=== PATIENT | male | born 1980 | race Caucasian/White ===

== ENCOUNTER 2018-10-18 13:26 | Emergency (ER) | payer OTHER ==
[~2018-10-18] VITALS: Ht 175.3 cm; Wt 80.2 kg
[2018-10-18 13:59] VITALS: Ht 175.3 cm; Wt 80.2 kg
--- NOTE | 2018-10-18 16:34 | ERD ---
ER Documentation Chief Complaint Chief Complaint Complains of elevated BP Hx of HTN HPI Patient is a 38-year-old male with a history of hypertension presents the ER for concerns of elevated BP. Patient states for the last week his blood pressure has been in the 160s over 100s. Patient states he stopped taking his blood pressure medication 2-3 months ago after he lost 20-30 pounds. Patient states initially his blood pressure was within normal limits however over the last week it has become elevated. Patient states last week he was having some left-sided chest pain which has now completely resolved.. Patient denies any shortness of breath. Patient states he did have some left-sided arm pain however he is not sure if it is related to his chronic wrist dislocation. Patient denies any nausea, vomiting, diaphoresis or LOC. Patient denies any headaches, visual changes, abdominal pain, unilateral weakness, slurred speech or difficulty ambulating. Patient states he has started taking his amlodipine 10 mg again yesterday. Patient has not been able to follow-up with a primary care physician as he recently changed insurances. Patient denies any unilateral leg swelling, recent travel, recent surgeries or history of DVT/PE. ROS All systems reviewed and are negative except as per history of present illness. Allergies Allergies: Coded Allergies: No Known Allergy (Unverified , 10/18/18) PMhx/Soc History of Surgery: Yes (removal of gynecomastia) Anesthesia Reaction: No Hx Cardiac Disorders: Yes (HTN) Hx Alcohol Use: Yes (social) Hx Substance Use: No Hx Tobacco Use: No Smoking Status: Never smoker FmHx Family History: No diabetes Physical Exam Vitals Vital Signs Date Temp Pulse Resp B/P (MAP) Pulse Ox O2 O2 Flow FiO2 Time Delivery Rate 10/18/18 81 20 160/106 96 Room Air 16:12 (124) 10/18/18 98.4 100 20 181/106 99 13:59 (131) Physical Exam GENERAL: Well-developed, well-nourished male. Appears in no acute distress. Speaking in full sentences HEAD: Normocephalic, atraumatic. EYES: Pupils are equally reactive bilaterally. EOMs grossly intact. No conjunctival erythema. ENT: Moist mucous membranes. No uvula deviation. No kissing tonsils. NECK: Supple. No meningismus. Normal range of motion of the neck. LUNG: Clear to auscultation bilaterally. No rhonchi, wheezing, rales or coarse breath sounds. HEART: Regular rate and rhythm. No murmurs, rubs or gallops. Equal pulses in bilateral upper extremities. EXTREMITIES: Equal pulses bilaterally. No peripheral clubbing, cyanosis or edema. No unilateral leg swelling. NEUROLOGIC: Alert and oriented x3, cooperative. Mood and affect appropriate to situation. Cranial nerves II through XII are grossly intact. Normal speech. Mo tor exam: 5/5 strength in upper and lower extremities. Sensory exam: Sensation intact to light touch on all four extremities. Cerebellar function exam: No dysmetria on yhdrnw-[id number]-sout and ucen-ba-uvaj test. Steady gait. No pronator drift. SKIN: Normal color. Warm and dry. No rashes or lesions. Result Diagram: 10/18/18 1634 10/18/18 1634 Results 24 hrs Laboratory Tests Test 10/18/18 16:34 White Blood Count 8.0 10^3/ul Red Blood Count 5.93 10^6/ul Hemoglobin 16.9 g/dl Hematocrit 51.0 % Mean Corpuscular Volume 86.0 fl Mean Corpuscular Hemoglobin 28.5 pg Mean Corpuscular Hemoglobin Concent 33.1 g/dl Red Cell Distribution Width 12.6 % Platelet Count 208 10^3/UL Mean Platelet Volume 10.0 fl Immature Granulocytes % 0.300 % Neutrophils % 52.7 % Lymphocytes % 37.4 % Monocytes % 8.7 % Eosinophils % 0.5 % Basophils % 0.4 % Nucleated Red Blood Cells % 0.0 /100WBC Immature Granulocytes # 0.020 10^3/ul Neutrophils # 4.2 10^3/ul Lymphocytes # 3.0 10^3/ul Monocytes # 0.7 10^3/ul Eosinophils # 0.0 10^3/ul Basophils # 0.0 10^3/ul Nucleated Red Blood Cells # 0.0 10^3/ul Sodium Level 143 mmol/L Potassium Level 4.0 mmol/L Chloride Level 104 mmol/L Carbon Dioxide Level 27 mmol/L Anion Gap 12 Blood Urea Nitrogen 16 mg/dl Creatinine 1.00 mg/dl Est Glomerular Filtrat Rate mL/min > 60 mL/min Glucose Level 93 mg/dl Calcium Level 10.4 mg/dl Troponin I < 0.012 ng/ml Procedures/MDM ED COURSE: The patient was stable throughout ED course. I kept the patient and/or family informed of laboratory and diagnostic imaging results throughout the ED course. EKG: Read by Dr. Aldana attending physician. EKG shows normal sinus rhythm with sinus arrhythmia at a rate of [address] elevations or T wave changes were noted. DIAGNOSTIC IMAGING: Read by radiologist. Patient: GEE ALLEN : 1980 Age: 38 Sex: M MR #: [id number] DOS: 10/18/18 1619 Ordering MD: BEN FUNG PA-C Location: [facility] Room/Bed: PROCEDURE: XR Chest. CLINICAL INDICATION: chest pain TECHNIQUE: Single frontal view of the chest was obtained COMPARISON: None FINDINGS: The heart and mediastinum are within normal limits. The lungs are clear. There is no pleural effusion or pneumothorax. RPTAT: AA IMPRESSION: No acute disease. .Cal Bourgeois MD, MD Date Time Electronically viewed and signed by .Cal Bourgeois MD, MD on 10/18/2018 17:26 .S/ CC: BEN FUNG PA-C [id number] PROCEDURES: None. MEDICAL DECISION MAKING: This is a 38-year-old male with a history of hypertension who presents the ER for concerns about elevated BP for the last week. Patient had initially lost approximately 20-30 pounds thus he stopped taking his blood pressure medication. Patient checked his blood pressure earlier this week and noticed that it was elevated. Patient started taking his amlodipine again 2 days ago. Patient reports taking amlodipine 10 mg daily. Patient also had left-sided chest pain earlier in the week which is now completely resolved. Patient has no shortness of breath, nausea, vomiting, diaphoresis, headache, blurry vision or LOC. Patient denies any recent travel, recent surgeries, history of DVT or PE. Vital signs were reviewed. Initial blood pressure was 181/106. Repeat blood pressure was 160/106. Patient was afebrile. Patient was not hypoxic. Cardiac exam was normal. Lung exam was normal. EKG showed normal sinus rhythm with sinus arrhythmia, read by ED attending. HEART score is low. Low suspicion for acute coronary syndrome, arrhythmia or pericarditis. CXR was within normal limits. Low suspicion for pneumothorax, pneumonia or pleural effusion. Neuro exam is within normal limits. I do not feel that CT imaging of the brain is indicated at this time. Low suspicion for TIA, CVA or intracranial hemorrhage. Low suspicion for PE or aortic dissection. At this time with the patient presentation is most consistent with elevated blood pressure. Patient was encouraged to continue taking his blood pressure medication follow-up with his primary care physician for further management. DISCHARGE: At this time, patient is stable for discharge and outpatient management. I have instructed the patient to follow-up with his/her primary care physician in 1-2 days. If symptoms persist, patient may need to see a specialist for further examinations and testing. I have instructed the patient to promptly return to the ER at any time for any new or worsening symptoms including increased increased pain, fever, nausea, vomiting, numbness, weakness, diaphoresis or LOC. The patient and/or family expressed understanding of and agreement with this plan. All questions were answered. Home care instructions were provided. Patient's blood pressure was elevated (>120/80) but appears stable without evidence of hypertensive emergency, hypertensive urgency or end-organ failure. I had discussion with the patient about the risks of hypertension. I have advised the patient to follow up with his/her primary care physician for outpatient monitoring and treatment for hypertension in 2-3 days. I have instructed the patient to return to the ER for any new or worsening symptoms including chest pain, shortness of breath, headache, blurred vision, confusion, nausea, vomiting or LOC. Disclaimer: Inadvertent spelling and grammatical errors are likely due to EHR/dictation software use and do not reflect on the overall quality of patient care. Also, please note that the electronic time recorded on this note does not necessarily reflect the actual time of the patient encounter. Departure Diagnosis: Primary Impression: Hypertension Hypertension type: unspecified Qualified Codes: I10 - Essential (primary) hypertension Condition: Fair Patient Instructions: High Blood Pressure (Hypertension) Referrals: [facility] YOU HAVE RECEIVED A MEDICAL SCREENING EXAM AND THE RESULTS INDICATE THAT YOU DO NOT HAVE A CONDITION THAT REQUIRES URGENT TREATMENT IN THE EMERGENCY DEPARTMENT. FURTHER EVALUATION AND TREATMENT OF YOUR CONDITION CAN WAIT UNTIL YOU ARE SEEN IN YOUR DOCTORS OFFICE WITHIN THE NEXT 1-2 DAYS. IT IS YOUR RESPONSIBILITY TO MAKE AN APPOINTMENT FOR FOLOW-UP CARE. IF YOU HAVE A PRIMARY DOCTOR --you should call your primary doctor and schedule an appointment IF YOU DO NOT HAVE A PRIMARY DOCTOR YOU CAN CALL OUR PHYSICIAN REFERRAL HOTLINE AT IF YOU CAN NOT AFFORD TO SEE A PHYSICIAN YOU CAN CHOSE FROM THE FOLLOWING [facility] [address] [facility] [address] [facility] [address] [facility] [address] [facility] [address] [facility]. [facility] [address] [facility]. [facility] YOU HAVE RECEIVED A MEDICAL SCREENING EXAM AND THE RESULTS INDICATE THAT YOU DO NOT HAVE A CONDITION THAT REQUIRES URGENT TREATMENT IN THE EMERGENCY DEPARTMENT. FURTHER EVALUATION AND TREATMENT OF YOUR CONDITION CAN WAIT UNTIL YOU ARE SEEN IN YOUR DOCTORS OFFICE WITHIN THE NEXT 1-2 DAYS. IT IS YOUR RESPONSIBILITY TO MAKE AN APPOINTMENT FOR FOLOW-UP CARE. IF YOU HAVE A PRIMARY DOCTOR --you should call your primary doctor and schedule and appointment IF YOU DO NOT HAVE A PRIMARY DOCTOR YOU CAN CALL OUR PHYSICIAN REFERRAL HOTLINE AT . IF YOU CAN NOT AFFORD TO SEE A PHYSICIAN YOU CAN CHOSE FROM THE FOLLOWING [facility] INSTITUTIONS: [facility] [address] [place] [address] [facility] [address] [place] [address] [facility] [address] [place] [address] Additional Instructions: Continue taking Amlodipine 10 mg as prescribed. Follow-up with your primary care physician for further management of your elevated blood pressures. Keep a log of blood pressures. Call your primary care doctor TOMORROW for an appointment during the next 1-2 days.See the doctor sooner or return here if your condition worsens before your appointment time. BEN FUNG PA-C Oct 18, 2018 16:34
[2018-10-18 17:54] VITALS: BP 148/95; PULSE 76; RESP 18
== END 2018-10-18 17:55 | disposition home or self-care (01) ==
LOC: FTE 13:26
DX: I10 Essential (primary) hypertension (principal)
CPT/HCPCS: 36415; 71045; 80048; 84484; 85025; 93005; Z7502